=== PATIENT | female | born 1970 | race African-American/Black ===

== ENCOUNTER 2017-08-16 08:16 | Emergency (ER) | payer OTHER ==
[~2017-08-16] VITALS: Ht 154.9 cm; Wt 88.9 kg
[2017-08-16] MEDS ORDERED: IPRATRPIUM/ALBUTEROL 0.5/2.5MG 3 ML NEBU. NEB ONE (08:45)
[2017-08-16] MEDS ORDERED: BENZONATATE 100 MG CAPSULE. PO ONE (09:00)
--- NOTE | 2017-08-16 09:38 | PHYS DOC ---
Past History Past Medical History: No Pertinent History Past Surgical History: Hysterectomy Smoking: Non-smoker Alcohol Use: Rarely Drug Use: None Adult General Chief Complaint Chief Complaint: COUGH HPI HPI 47-year-old nonsmoking female patient without medical problems complaining of cough for 2 weeks. Patient states she had nasal congestion and subjective fever and sore throat for the first few days that improve. Patient complaining of clear sputum and pain in left lateral lower chest wall for the last couple days that getting worse with movement and cough. Patient denies shortness of breath, nausea and vomiting, sick contact, dizziness and palpitation. Review of Systems Review of Systems Constitutional: Denies fever or chills [] Eyes: Denies change in visual acuity, redness, or eye pain [] HENT: Reports nasal congestion, sore throat [] Respiratory: Denies shortness of breath , reports cough[] Cardiovascular: No additional information not addressed in HPI [] GI: Denies abdominal pain, nausea, vomiting, bloody stools or diarrhea [] : Denies dysuria or hematuria [] Musculoskeletal: Denies back pain or joint pain [] Integument: Denies rash or skin lesions [] Neurologic: Denies headache, focal weakness or sensory changes [] Endocrine: Denies polyuria or polydipsia [] All other systems were reviewed and found to be within normal limits, except as documented in this note. Current Medications Current Medications Current Medications Medications (Trade) Dose Ordered Sig/Gabriel Start Time Stop Time Status Last Admin Dose Admin Albuterol/ Ipratropium (Duoneb) 3 ml 1X ONCE 08/16/17 08:45 08/16/17 09:04 DC 08/16/17 08:46 3 ML Benzonatate (Tessalon Perle) 200 mg 1X ONCE 08/16/17 09:00 08/16/17 09:04 DC 08/16/17 09:13 200 MG Allergies Allergies Allergies Coded Allergies Type Severity Reaction Last Updated Verified No Known Drug Allergies 08/16/17 No Physical Exam Physical Exam Constitutional: Well developed, well nourished, mild distress, non-toxic appearance. [] HENT: Normocephalic, atraumatic, bilateral external ears normal, oropharynx moist, no oral exudates, nose normal. [] Eyes: PERRLA, EOMI, conjunctiva normal, no discharge. [] Neck: Normal range of motion, no tenderness, supple, no stridor. [] Cardiovascular:Heart rate regular rhythm, no murmur [] Lungs & Thorax: Bilateral breath sounds clear to auscultation , left lateral chest wall muscle tenderness[] Abdomen: Bowel sounds normal, soft, no tenderness, no masses, no pulsatile masses. [] Skin: Warm, dry, no erythema, no rash. [] Back: No tenderness, no CVA tenderness. [] Extremities: No tenderness, no cyanosis, no clubbing, ROM intact, no edema. [] Neurologic: Alert and oriented X 3, normal motor function, normal sensory function, no focal deficits noted. [] Psychologic: Affect normal, judgement normal, mood normal. [] Current Patient Data Vital Signs Vital Signs Date Time Temp Pulse Resp B/P (MAP) Pulse Ox O2 Delivery O2 Flow Rate FiO2 08/16/17 08:49 99 Room Air 08/16/17 08:38 98.8 71 22 EKG EKG [] Radiology/Procedures Radiology/Procedures [] [address] [address] IMAGING REPORT Signed PATIENT: WILLY VEGA ACCOUNT: [id number] : 1970 LOCATION: ER AGE: 47 SEX: F EXAM STATUS: REG ER ORD. PHYSICIAN: TABITHA KAISER MD REASON: cough PROCEDURE: CHEST PA & LATERAL 2 view CXR: Clinical indications: Cough and congestion for 2 weeks. Comparison: None available. Findings: No acute lung infiltrate or pleural effusion or pulmonary edema or lung mass or pneumothorax is seen. Mild cardiomegaly is evident The pulmonary vasculature, mediastinum and both manan are unremarkable. The osseous structures appear intact. Impression: Mild cardiomegaly. No acute lung infiltrate.. DICTATED AND SIGNED BY: NISSA MARTIN MD DATE: 08/16/17 0955 CC: TABITHA KAISER MD; NON,STAFF ~ Course & Med Decision Making Course & Med Decision Making Pertinent Imaging studies reviewed. (See chart for details) Evaluation of patient in ER showed 47-year-old male patient with complaining of cough and congestion for 2 weeks and left lower rib pain with cough. Patient had unremarkable except except for cardiomegaly and physical exam except for chest wall tenderness. Patient for definitive treatment in ER. Plan discharge patient home to diagnose of bronchitis and pleurisy. Patient doesn't want to have large pills and asking for liquid medication. Dragon Disclaimer Dragon Disclaimer This electronic medical record was generated, in whole or in part, using a voice recognition dictation system. Departure Departure: Impression: Primary Impression: Acute bronchitis Additional Impression: Pleurisy Disposition: HOME, SELF-CARE (at 1015) Condition: IMPROVED Referrals: NON,STAFF (PCP) Patient Instructions: Acute Bronchitis, Pleurisy Additional Instructions: Drink plenty of liquids Take your home pain medication and Flexeril Follow-up with your primary care physician in 3-5 days Return to ER if not getting better Scripts Methylprednisolone (MEDROL) 4 Mg Tab.ds.pk 1 PKG PO UD, #1 PKG Prov: TABITHA KAISER MD 08/16/17 Benzonatate (TESSALON PERLE) 100 Mg Capsule 1 CAP PO TID, #21 CAP Prov: TABITHA KAISER MD 08/16/17 Amoxicillin/Potassium Clav (AUGMENTIN ES-600 SUSPENSION) 600 Mg/5 Ml Susp.recon 7.5 ML PO BID for 7 Days, #100 ML Prov: TABITHA KAISER MD 08/16/17 Problem Qualifiers TABITHA KAISER MD Aug 16, 2017 09:38
--- NOTE | 2017-08-16 10:03 | RAD ---
2 view CXR: Clinical indications: Cough and congestion for 2 weeks. Comparison: None available. Findings: No acute lung infiltrate or pleural effusion or pulmonary edema or lung mass or pneumothorax is seen. Mild cardiomegaly is evident The pulmonary vasculature, mediastinum and both manan are unremarkable. The osseous structures appear intact. Impression: Mild cardiomegaly. No acute lung infiltrate..
[2017-08-16] MEDS ORDERED: BENZ100C PO (10:22)
[2017-08-16] MEDS ORDERED: AMOX600S19 PO (10:22)
[2017-08-16] MEDS ORDERED: METH4TAB2 PO (10:22)
[2017-08-16 10:44] VITALS: BP 124/65
== END 2017-08-16 10:48 | disposition home or self-care (01) ==
LOC: ER 08:16
DX: J20.9 Acute bronchitis, unspecified (principal); R09.1 Pleurisy
CPT/HCPCS: 71046; 94640; 99284; J7620